=== PATIENT | female | born 1955 | race Caucasian/White ===

== ENCOUNTER 2022-05-12 00:50 | Inpatient (IN) ==
[2022-05-12] MEDS ORDERED: MORPHINE 2 MG/1 ML SYRINGE IV STA (01:18)
[2022-05-12] MEDS ORDERED: NITROGLYCERIN SL 0.4 MG TABLET SL PRN (01:18)
[2022-05-12] MEDS ORDERED: ASPIRIN 325 MG TABLET PO STA (01:18)
[2022-05-12] MEDS ORDERED: ONDANSETRON 4 MG/2 ML VIAL IV STA (01:18)
[2022-05-12] MEDS ORDERED: ASPIRIN 325 MG TABLET ONE (01:19)
[2022-05-12 01:32] LABS: Basophils # 0.1 10*3/uL (0.0-0.2); Basophils % 0.7 % (0.0-0.8); Eosinophils # 0.4 10*3/uL (0.0-0.87); Eosinophils % 4.9 % (0.00-10.9); Hemoglobin 13.8 GM/DL (12.0-16.0); Immature Granulocytes % 0.3 %; Immature Granulocytes Absolute 0.02 #; Lymphocytes # 1.5 10*3/uL (1.4-4.0); Lymphocytes % 19.7 % (21.3-54.2); Mean Corpuscular HGB Conc 30.7 GM/DL (32-36); Mean Platelet Volume 9.4 FL (9.6-12.0); Monocytes % 13.7 % (1.7-12.7); Neutrophils % 60.7 % (38.7-73.9); Platelet Count 369 T/CUMM (130-400); Red Cell Distribution Width 13.4 % (9.3-17.3); White Blood Count 7.61 T/CUMM (4-12)
[2022-05-12 01:37] LABS: Albumin 4.1 G/DL (3.4-5.0); Bilirubin,Total 0.5 MG/DL (0.20-1.00); Calcium 9.8 MG/DL (8.5-10.1); Osmolality,Calculated 287.3 MOS/KG (273-304); Potassium 4.1 MMOL/L (3.5-5.1); Total Protein 7.6 G/DL (6.4-8.2)
[2022-05-12] MEDS ORDERED: ENOXAPARIN 30 MG/0.3 ML SYRINGE SUBCUT STA (01:46)
[2022-05-12] MEDS ORDERED: ENOXAPARIN 100 MG/ML SYRINGE SUBCUT STA (01:49)
[2022-05-12] MEDS: NITROGLYCERIN 2% OINT 1 INCH/GM PACK TOP SCH ×2 (02:30→08:30)
[2022-05-12] MEDS: ONDANSETRON 4 MG/2 ML VIAL IV PRN ×4 (02:30→22:55)
[2022-05-12] MEDS ORDERED: hydrALAZINE 20 MG/1 ML VIAL IV PRN (03:22)
[2022-05-12 04:59] LABS: PT Patient Result 10.9 SECS (10.1-12.1); Partial Thromboplastin Time 26.8 SECS (23.7-32.9)
[2022-05-12 05:12] LABS: Risk Ratio 3.06; VLDL Cholesterol 18.8 MG/DL
[2022-05-12] MEDS: INSULIN REGULAR 100 UNIT/ML SUBCUT SCH ×4 (07:40→20:02)
[2022-05-12] MEDS ORDERED: SODIUM CHLORIDE 0.9% 250 ML IV STA (08:03)
[2022-05-12 09:23] LABS: Basophils % 0.1 % (0.0-0.8); Immature Granulocytes % 0.4 %; Immature Granulocytes Absolute 0.07 #; Lymphocytes # 0.5 10*3/uL (1.4-4.0); Lymphocytes % 3.2 % (21.3-54.2); Mean Corpuscular HGB Conc 30.8 GM/DL (32-36); Mean Corpuscular Volume 91.8 FL (87-102); Mean Platelet Volume 11.3 FL (9.6-12.0); Monocytes # 0.3 10*3/uL (0.11-0.8); Monocytes % 2.1 % (1.7-12.7); Neutrophils % 94.2 % (38.7-73.9); Red Cell Distribution Width 16.8 % (9.3-17.3)
[2022-05-12] MEDS ORDERED: POTASSIUM CHLORIDE RIDER 10 MEQ/100 ML PREMIX IV PRN (09:30)
[2022-05-12] MEDS ORDERED: MAGNESIUM SULF RIDER 2 GM/50 ML PREMIX IV PRN (09:30)
[2022-05-12 09:31] LABS: White Blood Count 16.58 T/CUMM (4-12)
[2022-05-12 09:32] LABS: Hemoglobin 11.1 GM/DL (12.0-16.0); Platelet Count 200 T/CUMM (130-400); Red Blood Count 3.92 MC/CUMM (3.8-5.5)
[2022-05-12 09:41] LABS: Albumin 3.8 G/DL (3.4-5.0); Bilirubin,Total 0.5 MG/DL (0.20-1.00); Calcium 9.1 MG/DL (8.5-10.1); Osmolality,Calculated 283.5 MOS/KG (273-304); Potassium 4.5 MMOL/L (3.5-5.1); Total Protein 7.7 G/DL (6.4-8.2)
[2022-05-12] MEDS: ASPIRIN EC 325 MG TABLET PO SCH (10:09)
[2022-05-12] MEDS: ROSUVASTATIN 20 MG TABLET PO SCH (10:09)
[2022-05-12] MEDS: PANTOPRAZOLE 40 MG TABLET PO SCH (10:09)
[2022-05-12 10:19] LABS: Band Neutrophils 1 % (0-10); Hypochromia Slight; Lymphocytes 5 % (20-55); Microcytosis Slight; Platelet Estimate Adequate; Total Cells Counted 100
[2022-05-12] MEDS: SODIUM CHLORIDE 0.9% 1,000 ML IV SCH ×3 (10:26→17:54)
[2022-05-12] MEDS ORDERED: HEPARIN/NACL 0.9% 2 UNITS/ML 3,000 UNIT/1,500 ML BAG IV ONE (10:50)
[2022-05-12] MEDS ORDERED: MIDAZOLAM 2 MG/2 ML VIAL ONE (11:19)
[2022-05-12] MEDS ORDERED: fentaNYL 100 MCG/2 ML VIAL ONE (11:19)
[2022-05-12] MEDS ORDERED: GLUCAGON 1 MG VIAL IM PRN (12:59)
[2022-05-12] MEDS ORDERED: DEXTROSE 10% 250 ML BAG IV PRN (13:02)
[2022-05-12] MEDS ORDERED: NITROGLYCERIN 2% OINT 1 INCH/GM PACK TOP ONE (13:58)
[2022-05-12] MEDS ORDERED: ENOXAPARIN 60 MG/0.6 ML SYRINGE ONE (13:59)
[2022-05-12] MEDS ORDERED: ONDANSETRON 4 MG/2 ML VIAL ONE (14:39)
[2022-05-12] MEDS: ISOSORBIDE MONONITRATE 30 MG TABLET PO SCH (14:40)
[2022-05-12] MEDS: ENOXAPARIN 120 MG/0.8 ML SYRINGE SUBCUT SCH (16:10)
[2022-05-12] MEDS: ACETAMINOPHEN 325 MG TABLET PO PRN (20:17)
[2022-05-12] MEDS ORDERED: PROMETHAZINE 25 MG/1 ML VIAL IM ONE (23:50)
[2022-05-13] MEDS: ENOXAPARIN 120 MG/0.8 ML SYRINGE SUBCUT SCH ×2 (02:14→13:28)
[2022-05-13] MEDS: SODIUM CHLORIDE 0.9% 1,000 ML IV SCH (03:20)
[2022-05-13] MEDS: MORPHINE 2 MG/1 ML SYRINGE IV PRN ×2 (04:27→07:48)
[2022-05-13] MEDS: ONDANSETRON 4 MG/2 ML VIAL IV PRN ×2 (04:28→07:48)
[2022-05-13 04:29] LABS: Basophils % 0.2 % (0.0-0.8); Eosinophils # 0.1 10*3/uL (0.0-0.87); Eosinophils % 0.7 % (0.00-10.9); Hematocrit 37.8 VOL% (35.7-47.0); Hemoglobin 11.9 GM/DL (12.0-16.0); Immature Granulocytes % 0.5 %; Immature Granulocytes Absolute 0.05 #; Lymphocytes # 0.8 10*3/uL (1.4-4.0); Lymphocytes % 7.6 % (21.3-54.2); Mean Corpuscular HGB Conc 31.5 GM/DL (32-36); Mean Corpuscular Volume 89.2 FL (87-102); Mean Platelet Volume 9.1 FL (9.6-12.0); Monocytes # 1.2 10*3/uL (0.11-0.8); Monocytes % 11.4 % (1.7-12.7); Neutrophils % 79.6 % (38.7-73.9); Platelet Count 255 T/CUMM (130-400); Red Blood Count 4.24 MC/CUMM (3.8-5.5); Red Cell Distribution Width 13.5 % (9.3-17.3); White Blood Count 10.12 T/CUMM (4-12)
[2022-05-13 04:55] LABS: Osmolality,Calculated 279.5 MOS/KG (273-304); Potassium 4.3 MMOL/L (3.5-5.1)
[2022-05-13] MEDS: LEVOTHYROXINE 75 MCG TABLET PO SCH (06:03)
[2022-05-13] MEDS: INSULIN REGULAR 100 UNIT/ML SUBCUT SCH ×4 (07:45→20:00)
[2022-05-13] MEDS: ROSUVASTATIN 20 MG TABLET PO SCH (08:35)
[2022-05-13] MEDS: ISOSORBIDE MONONITRATE 30 MG TABLET PO SCH (08:35)
[2022-05-13] MEDS: FENOFIBRATE 145 MG TABLET PO SCH (08:35)
[2022-05-13] MEDS: ASPIRIN EC 325 MG TABLET PO SCH (08:35)
[2022-05-13] MEDS: OMEGA 3 ACID ETHYL ESTERS 1 GM CAPSULE PO SCH (08:35)
[2022-05-13] MEDS: PANTOPRAZOLE 40 MG TABLET PO SCH (08:35)
[2022-05-13 09:37] LABS: % Iron Saturation 8.7 % (18-50)
[2022-05-13 09:45] LABS: 25 Hydroxy Vitamin D Total 22.2 NG/ML (30-100); Folate 10.26 NG/ML (5.38-24.0)
[2022-05-13] MEDS: LOSARTAN 25 MG TABLET PO SCH (11:46)
[2022-05-13] MEDS ORDERED: CHOLECALCIFEROL 1,000 UNIT TABLET PO ONE (15:15)
[2022-05-13] MEDS: ACETAMINOPHEN 325 MG TABLET PO PRN (19:58)
[2022-05-14] MEDS: ENOXAPARIN 120 MG/0.8 ML SYRINGE SUBCUT SCH ×2 (02:08→14:16)
[2022-05-14 04:07] LABS: Basophils % 0.3 % (0.0-0.8); Eosinophils # 0.1 10*3/uL (0.0-0.87); Eosinophils % 1.9 % (0.00-10.9); Hematocrit 35.6 VOL% (35.7-47.0); Hemoglobin 11.5 GM/DL (12.0-16.0); Immature Granulocytes % 0.3 %; Immature Granulocytes Absolute 0.02 #; Lymphocytes # 0.9 10*3/uL (1.4-4.0); Lymphocytes % 13.9 % (21.3-54.2); Mean Corpuscular HGB Conc 32.3 GM/DL (32-36); Mean Platelet Volume 9.2 FL (9.6-12.0); Monocytes # 0.9 10*3/uL (0.11-0.8); Monocytes % 13.3 % (1.7-12.7); Neutrophils % 70.3 % (38.7-73.9); Platelet Count 219 T/CUMM (130-400); Red Cell Distribution Width 13.3 % (9.3-17.3)
[2022-05-14 04:24] LABS: Calcium 8.8 MG/DL (8.5-10.1); Osmolality,Calculated 278.4 MOS/KG (273-304); Potassium 3.7 MMOL/L (3.5-5.1)
[2022-05-14] MEDS: LEVOTHYROXINE 75 MCG TABLET PO SCH (06:20)
[2022-05-14] MEDS: ASPIRIN EC 325 MG TABLET PO SCH (08:33)
[2022-05-14] MEDS: PANTOPRAZOLE 40 MG TABLET PO SCH (08:34)
[2022-05-14] MEDS: OMEGA 3 ACID ETHYL ESTERS 1 GM CAPSULE PO SCH (08:34)
[2022-05-14] MEDS: ROSUVASTATIN 20 MG TABLET PO SCH (08:34)
[2022-05-14] MEDS: ISOSORBIDE MONONITRATE 30 MG TABLET PO SCH (08:35)
[2022-05-14] MEDS: LOSARTAN 25 MG TABLET PO SCH (08:35)
[2022-05-14] MEDS: FENOFIBRATE 145 MG TABLET PO SCH (08:35)
[2022-05-14] MEDS: INSULIN REGULAR 100 UNIT/ML SUBCUT SCH ×3 (08:39→15:56)
[2022-05-14] MEDS ORDERED: CHOLECALCIFEROL 1,000 UNIT TABLET PO SCH (09:00)
[2022-05-14] MEDS ORDERED: FERROUS SULFATE 325 MG TABLET PO SCH (09:00)
[2022-05-14 10:41] VITALS: BP 129/76
[2022-05-14] MEDS ORDERED: FLUTICASONE 50 MCG NASAL SPRAY 16 GM BOTTLE BOTH NARES SCH (11:00)
== END 2022-05-14 18:03 | disposition hospice, home (50) | DRG 281 ==
LOC: N.ED 00:50 → N.EDINP 02:07 → N.CC 15:29
PROVIDERS: ADMIT Internal Medicine; ATTEND Internal Medicine